=== PATIENT | male | born 1955 | race Caucasian/White ===

== ENCOUNTER 2022-07-21 10:23 | Emergency (ER) | payer MEDICARE, MEDICAID ==
[~2022-07-21] VITALS: Ht 193 cm; Wt 68.0 kg
[2022-07-21 11:06] LABS: BASO # 0.02 K/mm3 (0.02-0.10); EOS # 0.19 K/mm3 (0.04-0.40); EOS % 1.4 % (0.0-4.0); HEMATOCRIT 45.6 % (42.0-52.0); HEMOGLOBIN 14.4 g/dL (13.5-18.0); LYMPH# 1.68 K/mm3 (1.50-4.00); MEAN CELL VOLUME 83 fl (78-100); MEAN CORPUSCULAR HEMOGLOBIN 26 pg (27-31); MEAN CORPUSCULAR HGB CONC 32 g/dL (33-37); MEAN PLATELET VOLUME 10.5 fl (7.4-10.4); MONO # 1.08 K/mm3 (0.20-0.80); NEU # 11.04 K/mm3 (1.40-6.50); PLATELET COUNT 271 K/mm3 (130-400); RED BLOOD COUNT 5.49 M/mm3 (4.20-5.60); RED CELL DISTRIBUTION WIDTH 13.9 % (11.5-14.5); WHITE BLOOD COUNT 14.1 K/mm3 (4.8-10.8)
[2022-07-21 11:09] LABS: ALBUMIN 4.1 g/dL (3.4-4.8)
[2022-07-21 11:10] LABS: POTASSIUM 3.2 mmol/L (3.5-5.1)
[2022-07-21 11:11] LABS: CALCIUM 10.5 mg/dL (8.3-10.5)
[2022-07-21 11:12] LABS: TOTAL PROTEIN 8.1 g/dL (6.2-8.1)
[2022-07-21 11:14] LABS: TOTAL BILIRUBIN 0.8 mg/dL (0.2-1.2)
[2022-07-21] MEDS ORDERED: SYNTHROID0.075 MG PO (12:25)
[2022-07-21] MEDS ORDERED: CYMBALTA60 M1 PO (12:25)
[2022-07-21] MEDS ORDERED: VITAMIN D21250 MCG PO (12:26)
[2022-07-21] MEDS ORDERED: OXYCODONE HCL15 MG PO (12:27)
[2022-07-21] MEDS ORDERED: DURAGESIC75 MCG/PAT TD (12:27)
[2022-07-21] MEDS ORDERED: GOOD SENSE ASPI81 M1 PO (12:27)
[2022-07-21 13:09] LABS: URINE APPEARANCE CLEAR; URINE BILIRUBIN NEGATIVE (NEGATIVE); URINE BLOOD NEGATIVE (NEGATIVE); URINE COLOR YELLOW; URINE GLUCOSE NEGATIVE (NEGATIVE); URINE KETONE 2+ (NEGATIVE); URINE LEUKOCYTE ESTERASE NEGATIVE (NEGATIVE); URINE NITRATE NEGATIVE (NEGATIVE); URINE PROTEIN(semi-quant) TRACE (NEGATIVE); URINE UROBILINOGEN NORMAL (NORMAL)
[2022-07-21 15:37] VITALS: BP 146/96
== END 2022-07-21 15:40 | disposition home or self-care (01) ==
LOC: ED 10:23
PROVIDERS: Family Medicine
DX: K56.41 Fecal impaction (principal); D72.829 Elevated white blood cell count, unspecified; G89.29 Other chronic pain; Z79.1 Long term (current) use of non-steroidal anti-inflammatories (NSAID); Z98.890 Other specified postprocedural states
CPT/HCPCS: Q9967

== ENCOUNTER 2024-01-25 19:17 | Emergency (ER) | payer MEDICARE, MEDICAID ==
[~2024-01-25] VITALS: Wt 54.5 kg
[~2024-01-25 19:17] MED LIST: CYMBALTA60 M1 PO; DURAGESIC75 MCG/PAT TD; GOOD SENSE ASPI81 M1 PO; OXYCODONE HCL15 MG PO; SYNTHROID0.075 MG PO; VITAMIN D21250 MCG PO
[2024-01-25 20:13] LABS: HEMATOCRIT 46.8 % (42.0-52.0); HEMOGLOBIN 14.7 g/dL (13.5-18.0); MEAN CELL VOLUME 82 fl (78-100); MEAN CORPUSCULAR HEMOGLOBIN 26 pg (27-31); MEAN CORPUSCULAR HGB CONC 31 g/dL (33-37); MEAN PLATELET VOLUME 9.7 fl (7.4-10.4); PLATELET COUNT 323 K/mm3 (130-400); RED BLOOD COUNT 5.72 M/mm3 (4.20-5.60); RED CELL DISTRIBUTION WIDTH 13.8 % (11.5-14.5)
[2024-01-25 20:15] LABS: ALBUMIN 4.1 g/dL (3.4-4.8); SODIUM 140 mmol/L (136-145)
[2024-01-25 20:16] LABS: CALCIUM 10.9 mg/dL (8.3-10.5)
[2024-01-25 20:17] LABS: GLUCOSE 236 mg/dL (75-110); TOTAL PROTEIN 7.6 g/dL (6.2-8.1)
[2024-01-25 20:19] LABS: CARBON DIOXIDE 27 mmol/L (23-31); TOTAL BILIRUBIN 0.6 mg/dL (0.2-1.2)
[2024-01-25 20:23] LABS: AST-SGOT 13 U/L (5-34)
[2024-01-25 20:25] LABS: ALT/SGPT < 6 U/L (0-55)
[2024-01-25 20:26] LABS: BAND 4 % (0-10); LIPASE < 4 U/L (8-78); LYMPHOCYTE 9 % (20-51); MONOCYTE 7 % (3-10); NEUTROPHILS 79 % (42-75)
[2024-01-25] MEDS ORDERED: fentaNYL 100 MCG/2 ML VIAL IV ONE ×2 (20:30→21:15)
[2024-01-25] MEDS ORDERED: Ondansetron 4 MG/2 ML VIAL IV ONE (20:30)
[2024-01-25] MEDS ORDERED: Iohexol 300 - 100 ML VIAL IV ONE (21:57)
[2024-01-25 22:00] LABS: URINE APPEARANCE SLIGHTLY CLOUDY (CLEAR); URINE BILIRUBIN 1+ (NEGATIVE); URINE BLOOD NEGATIVE (NEGATIVE); URINE COLOR AMBER (YELLOW); URINE GLUCOSE NEGATIVE (NEGATIVE); URINE KETONE NEGATIVE (NEGATIVE); URINE LEUKOCYTE ESTERASE NEGATIVE (NEGATIVE); URINE NITRATE NEGATIVE (NEGATIVE); URINE PROTEIN(semi-quant) 1+ (NEGATIVE); URINE WBC 0-1 /hpf (0-3)
[2024-01-25] MEDS ORDERED: Piperacillin/Tazobactam Sodium 4.5 GM in NS 100 ML IV ONE (22:00)
[2024-01-25 23:45] VITALS: BP 132/71
== END 2024-01-25 23:45 | disposition other institution (70) ==
LOC: ED 19:17
PROVIDERS: Family Medicine
DX: A41.9 Sepsis, unspecified organism (principal); R19.7 Diarrhea, unspecified; E86.0 Dehydration; R11.0 Nausea; R10.9 Unspecified abdominal pain
CPT/HCPCS: J2405; J2543; J3010; J7120; Q9967

== ENCOUNTER 2024-01-25 22:41 | Inpatient (IN) | payer MEDICARE, MEDICAID ==
[~2024-01-25] VITALS: Ht 193 cm; Wt 52.7 kg
[2024-01-25] MEDS ORDERED: NS & 20mEq KCl 1,000 ML IV SCH (23:15)
[2024-01-25] MEDS ORDERED: fentaNYL 100 MCG/2 ML VIAL IV PRN (23:15)
[2024-01-25] MEDS ORDERED: Ondansetron 4 MG/2 ML VIAL IV PRN (23:15)
[2024-01-25 23:28] VITALS: BP 132/71
--- NOTE | 2024-01-25 23:45 | NUR ---
PT ARRIVED TO INPATIENT ROOM VIA WHEELCHAIR, PT AWAKE, A/OX4, IVSITE IN LFA 20G STARTED IN ER, PT STATED ABD PAIN /. WHEN THIS RN TRIED TO DO PT ADMISSION PROCESS, PT WAS UNABLE TO STAY AWAKE, VS WHERE ALL WITHIN NORMAL RANGE. TELEMETRY MONITORING WAS STARTED MED MD ORDERS. THIS RN WILL ATTEMPT TO COMPLETE THE ADMISSION QUESTIONARE AT A LATER TIME. PT SEEMED TO BE TIRED EVEN IN ER. PT LEFT IN BED AT LOWEST POSITION, ALARMED W CALL LIGHT IN REACH.
[2024-01-26 02:11] VITALS: BP 121/80
[2024-01-26] MEDS ORDERED: Piperacillin/Tazobactam Sodium 3.375 GM in NS 100 ML IV SCH (06:00)
[2024-01-26 06:14] LABS: HEMATOCRIT 42.6 % (42.0-52.0); HEMOGLOBIN 13.6 g/dL (13.5-18.0); MEAN CELL VOLUME 82 fl (78-100); MEAN CORPUSCULAR HEMOGLOBIN 26 pg (27-31); MEAN CORPUSCULAR HGB CONC 32 g/dL (33-37); MEAN PLATELET VOLUME 9.7 fl (7.4-10.4); PLATELET COUNT 250 K/mm3 (130-400); RED BLOOD COUNT 5.18 M/mm3 (4.20-5.60)
[2024-01-26 06:17] VITALS: BP 130/81
[2024-01-26 06:17] LABS: WHITE BLOOD COUNT 23.4 K/mm3 (4.8-10.8)
[2024-01-26 06:22] LABS: ALBUMIN 3.4 g/dL (3.4-4.8); SODIUM 139 mmol/L (136-145)
[2024-01-26 06:23] LABS: CALCIUM 9.7 mg/dL (8.3-10.5)
[2024-01-26 06:24] LABS: GLUCOSE 184 mg/dL (75-110)
[2024-01-26 06:25] LABS: TOTAL PROTEIN 6.2 g/dL (6.2-8.1)
[2024-01-26 06:26] LABS: CARBON DIOXIDE 24 mmol/L (23-31); TOTAL BILIRUBIN 0.7 mg/dL (0.2-1.2)
[2024-01-26 06:30] LABS: AST-SGOT 13 U/L (5-34)
[2024-01-26 06:32] LABS: ALT/SGPT < 6 U/L (0-55); LIPASE < 4 U/L (8-78)
[2024-01-26 06:53] LABS: LYMPHOCYTE 4 % (20-51); MONOCYTE 4 % (3-10); NEUTROPHILS 92 % (42-75)
[2024-01-26] MEDS ORDERED: Nicotine 21 MG DAILY PATCH TD SCH (09:00)
[2024-01-26] MEDS ORDERED: DULoxetine 30 MG CAP PO SCH (09:00)
--- NOTE | 2024-01-26 09:30 | NUR ---
Pt is arousable to voice with touch but otherwise very drowsy and falls back to sleep when conversation stops. Pt reports chronic pain to lower back. Reports pain 6/10 to back. Has 50mcg fentanyl patch to L upper abdomen. Reports that he takes oxycodone 20mg QID at home in addition to patch and is concerned that he has not gotten any here. States "I don't want to go through withdrawal." Assure pt that he had IV pain Rx. Also tell pt that this RN is not comfortable giving add'l pain Rx when pt is unable to remain awake. Pt reports that he stopped taking opioids x 10 days, says he started again because he could not tolerate the withdrawal symptoms. Pt everyday smoker, applied nicotine patch to L shoulder. Pt reports moving to this area 2 years ago weighing approx 165#. Says that he does not know why he has continued to lose weight. Reports that he has been told it is r/t oxycodone. IV to LFA with fluids infusing per order.
[2024-01-26 10:00] VITALS: BP 119/73
--- NOTE | 2024-01-26 12:00 | NUR ---
Pt SO, Rima, reports that pt has lost 50# steadily over the last 2 years. Has not had any preventative procedures done for >10 years. Is nauseated regularly and takes zofran. She thinks weight loss is r/t oxycodone. Says that pt started taking pain Rx approx 4 years ago after injury to leg and hip. Says that pt eats at home, but continues to lose weight. Is unable to go anywhere or get out in community r/t pain, nausea and weakness.
[2024-01-26 14:15] VITALS: BP 115/73
--- NOTE | 2024-01-26 16:47 | NUR ---
Pt awake and alert. Ambulates to BR, urinates large unmeasured amount. Requests to sit up in recliner. Request regular meal tray. Notify provider, diet order changed.
[2024-01-26] MEDS ORDERED: oxyCODONE 5 MG TAB PO PRN (18:00)
[2024-01-26 18:03] VITALS: BP 121/64
[2024-01-26 22:00] VITALS: BP 135/66
[2024-01-27] VITALS (7 sets, daily range): BP systolic 102–174; BP diastolic 67–86
[2024-01-27 08:18] LABS: CALCIUM 8.5 mg/dL (8.3-10.5)
[2024-01-27 08:37] LABS: BASO # 0.02 K/mm3 (0.02-0.10); EOS # 0.28 K/mm3 (0.04-0.40); EOS % 2.3 % (0.0-4.0); HEMATOCRIT 32.2 % (42.0-52.0); LYMPH# 2.12 K/mm3 (1.50-4.00); MEAN CELL VOLUME 85 fl (78-100); MEAN CORPUSCULAR HEMOGLOBIN 26 pg (27-31); MEAN CORPUSCULAR HGB CONC 31 g/dL (33-37); MEAN PLATELET VOLUME 10.5 fl (7.4-10.4); MONO # 1.05 K/mm3 (0.20-0.80); NEU # 8.81 K/mm3 (1.40-6.50); RED BLOOD COUNT 3.81 M/mm3 (4.20-5.60); RED CELL DISTRIBUTION WIDTH 14.3 % (11.5-14.5); WHITE BLOOD COUNT 12.3 K/mm3 (4.8-10.8)
[2024-01-27 08:43] LABS: PLATELET COUNT 176 K/mm3 (130-400)
--- NOTE | 2024-01-27 08:53 | NUR ---
REPORT RECEIVED FROM ILANA MONTES. PATIENT RESTING IN BED UPON ARRIVAL IN ROOM. PT COMPLAINING OF 7 OUT OF 10 PAIN "ALL OVER", BUT HE STATES HE KNOWS HE CANNOT HAVE MORE PAIN MEDICATION AT THIS TIME. REPORTING NAUSEA, ZOFRAN GIVEN WHICH PATIENT STATED GAVE HIM SOME RELIEF. PATIENT ALSO INSTRUCTED TO CONTACT TO BRING IN NEW FENTANYL PATCH HIS WILL TODAY. TELE DC'D AT [id number].
[2024-01-27] MEDS ORDERED: Amoxicillin/Clavulanate K+ 875/125 MG TAB PO SCH (09:00)
--- NOTE | 2024-01-27 11:25 | NUR ---
PT'S BROUGHT IN NEW FENTANYL PATCH. VERIFIED THAT IT WAS A 75 MCG FENTANYL PATCH. OLD PATCH REMOVED AND DISPOSED OF AND NEW PATCH PLACED IN RIGHT RIB AREA.
[2024-01-27] MEDS ORDERED: hydrALAZINE 10 MG TAB PO PRN (16:30)
--- NOTE | 2024-01-27 16:50 | NUR ---
AT 1410 PT BLOOD PRESSURE ELEVATED AT 170/80. PT WAS HAVING A LOT OF PAIN AND MEDICATION WAS GIVEN. RECHECK OF BLOOD PRESSURE AROUND 1630 SHOWED BP OF 174/86. DR VIERA NOTIFIED OF ELEVATED BLOOD PRESSURES.
[2024-01-27] MEDS ORDERED: QUEtiapine 25 MG TAB PO SCH (21:00)
--- NOTE | 2024-01-27 22:19 | NUR ---
THIS NURSEE ASSESED PT. PT REPORTED BEING IN PAIN, AND NOT SLEEPING WELL. HE HAS HAD 3 REGULAR BMS TODAY. PT HAD A MOMENT OF TEARFULNESS AFTER GETTING OFF OF THE PHONE WITH HIS THIS EVENING. RN REPORTED PTS LACK OF SLEEP TO DR. VIERA. AN EKG WAS ORDERED TO RULE OUT ELEVATED OR PROLONGED ST WAVES. SEROQUEL ORDERED. RN EDUCATED PT, IF PT IS STILL AWAKE IN ONE HOUR TO CALL FOR THE NURSE. PT IS RESTING QUIETLY IN BED.
[2024-01-28 02:18] VITALS: BP 146/83
[2024-01-28 06:05] VITALS: BP 132/75
[2024-01-28 06:36] LABS: BASO # 0.02 K/mm3 (0.02-0.10); EOS % 2.5 % (0.0-4.0); HEMATOCRIT 33.8 % (42.0-52.0); HEMOGLOBIN 10.4 g/dL (13.5-18.0); MEAN CELL VOLUME 84 fl (78-100); MEAN CORPUSCULAR HEMOGLOBIN 26 pg (27-31); MEAN CORPUSCULAR HGB CONC 31 g/dL (33-37); MEAN PLATELET VOLUME 9.5 fl (7.4-10.4); MONO # 0.68 K/mm3 (0.20-0.80); NEU # 4.85 K/mm3 (1.40-6.50); PLATELET COUNT 190 K/mm3 (130-400); RED BLOOD COUNT 4.01 M/mm3 (4.20-5.60)
[2024-01-28 06:45] LABS: CALCIUM 9.1 mg/dL (8.3-10.5)
[2024-01-28 10:09] VITALS: BP 161/82
[2024-01-28] MEDS ORDERED: AMOXICILLIN AND1 TA2 PO (10:55)
[2024-01-28] MEDS ORDERED: OXYCODONE HYDROC5 M1 PO (10:57)
--- NOTE | 2024-01-28 11:16 | NUR ---
REPORT RECEIVED THIS AM FROM ILANA BRIAN. PATIENT ALERT AND ORIENTED. STATED HE WAS ABLE TO SLEEP A LOT BETTER OVERNIGHT. PAIN STILL AT A CONSISTENT 7/10. PT REPORTS NAUSEA. STATES HE OVERALL FEELS BETTER THAN PREVIOUS, REQUESTING TO BE DISCHARGED TODAY.
--- NOTE | 2024-01-28 12:19 | NUR ---
DISCHARGE INSTRUCTIONS AND MEDICATIONS GIVEN TO PATIENT. PT AND VERBALIZE UNDERSTANDING OF INSTRUCTIONS. PT TO CALL PCP ON TUESDAY TO SET UP FOLLOW UP APPOINTMENT WITH FURTHER LABS AND TESTING. IV REMOVED, CATHETER INTACT. PATIENT AND HAD ALL QUESTIONS ANSWERED. PT TAKEN OUT TO PRIVATE VEHICLE VIA WHEELCHAIR.
== END 2024-01-28 12:20 | disposition home or self-care (01) | DRG 445 ==
LOC: MED/SURG 22:41
PROVIDERS: ADMIT Family Medicine
DX: K80.70 Calculus of gallbladder and bile duct without cholecystitis without obstruction (principal); M48.54XA Collapsed vertebra, not elsewhere classified, thoracic region, initial encounter for fracture; G89.4 Chronic pain syndrome; E86.0 Dehydration; E87.6 Hypokalemia; K64.9 Unspecified hemorrhoids; R63.4 Abnormal weight loss; Q55.22 Retractile testis; F17.210 Nicotine dependence, cigarettes, uncomplicated; Z79.891 Long term (current) use of opiate analgesic; Z79.82 Long term (current) use of aspirin
CPT/HCPCS: J1650; J2405; J2543; J3480

== ENCOUNTER 2024-02-07 19:57 | Emergency (ER) | payer MEDICARE, MEDICAID ==
[~2024-02-07] VITALS: Ht 193 cm; Wt 59.0 kg
[~2024-02-07 19:57] MED LIST changes: +AMOXICILLIN AND1 TA2 PO; +OXYCODONE HYDROC5 M1 PO
[2024-02-07] MEDS ORDERED: SENNA8.6 M1 PO (20:12)
[2024-02-07] MEDS ORDERED: LORazepam 0.5 MG TABLET PO ONE (20:30)
[2024-02-07 20:50] LABS: BASO # 0.01 K/mm3 (0.02-0.10); EOS # 0.23 K/mm3 (0.04-0.40); HEMATOCRIT 37.3 % (42.0-52.0); HEMOGLOBIN 11.5 g/dL (13.5-18.0); LYMPH# 1.41 K/mm3 (1.50-4.00); MEAN CELL VOLUME 85 fl (78-100); MEAN CORPUSCULAR HEMOGLOBIN 26 pg (27-31); MEAN CORPUSCULAR HGB CONC 31 g/dL (33-37); MEAN PLATELET VOLUME 9.1 fl (7.4-10.4); MONO # 0.67 K/mm3 (0.20-0.80); NEU # 9.01 K/mm3 (1.40-6.50); PLATELET COUNT 258 K/mm3 (130-400); RED BLOOD COUNT 4.41 M/mm3 (4.20-5.60); RED CELL DISTRIBUTION WIDTH 14.8 % (11.5-14.5); WHITE BLOOD COUNT 11.4 K/mm3 (4.8-10.8)
[2024-02-07 21:02] LABS: ALBUMIN 3.6 g/dL (3.4-4.8); SODIUM 141 mmol/L (136-145)
[2024-02-07 21:03] LABS: CALCIUM 9.3 mg/dL (8.3-10.5)
[2024-02-07 21:04] LABS: GLUCOSE 147 mg/dL (75-110)
[2024-02-07 21:05] LABS: TOTAL PROTEIN 6.3 g/dL (6.2-8.1)
[2024-02-07 21:06] LABS: CARBON DIOXIDE 25 mmol/L (23-31); TOTAL BILIRUBIN 0.3 mg/dL (0.2-1.2)
[2024-02-07 21:09] LABS: URINE APPEARANCE CLOUDY (CLEAR); URINE BILIRUBIN NEGATIVE (NEGATIVE); URINE BLOOD NEGATIVE (NEGATIVE); URINE COLOR YELLOW (YELLOW); URINE GLUCOSE NEGATIVE (NEGATIVE); URINE KETONE NEGATIVE (NEGATIVE); URINE NITRATE NEGATIVE (NEGATIVE); URINE PROTEIN(semi-quant) NEGATIVE (NEGATIVE)
[2024-02-07 21:10] LABS: URINE LEUKOCYTE ESTERASE NEGATIVE (NEGATIVE); URINE WBC 0-1 /hpf (0-3)
[2024-02-07 21:10] LABS: AST-SGOT 7 U/L (5-34)
[2024-02-07 21:16] LABS: ALT/SGPT < 6 U/L (0-55)
[2024-02-07 21:28] VITALS: BP 180/88
== END 2024-02-07 21:31 | disposition home or self-care (01) ==
LOC: ED 19:57
PROVIDERS: Physician Assistant; Registered Nurse
DX: F41.9 Anxiety disorder, unspecified (principal); F17.210 Nicotine dependence, cigarettes, uncomplicated

== ENCOUNTER 2024-03-24 15:53 | Emergency (ER) | payer MEDICARE, MEDICAID ==
[~2024-03-24] VITALS: Ht 193 cm; Wt 53.2 kg
[~2024-03-24 15:53] MED LIST changes: +SENNA8.6 M1 PO
[2024-03-24 16:23] LABS: BASO # 0.01 K/mm3 (0.02-0.10); EOS # 0.26 K/mm3 (0.04-0.40); EOS % 3.1 % (0.0-4.0); HEMATOCRIT 38.2 % (42.0-52.0); HEMOGLOBIN 12.3 g/dL (13.5-18.0); LYMPH# 1.14 K/mm3 (1.50-4.00); MEAN CELL VOLUME 80 fl (78-100); MEAN CORPUSCULAR HEMOGLOBIN 26 pg (27-31); MEAN CORPUSCULAR HGB CONC 32 g/dL (33-37); MEAN PLATELET VOLUME 8.7 fl (7.4-10.4); MONO # 0.63 K/mm3 (0.20-0.80); NEU # 6.33 K/mm3 (1.40-6.50); PLATELET COUNT 259 K/mm3 (130-400); RED BLOOD COUNT 4.77 M/mm3 (4.20-5.60); RED CELL DISTRIBUTION WIDTH 14.1 % (11.5-14.5); WHITE BLOOD COUNT 8.4 K/mm3 (4.8-10.8)
[2024-03-24] MEDS ORDERED: NS 1,000 ML IV SCH (16:30)
[2024-03-24 16:32] LABS: CALCIUM 9.6 mg/dL (8.3-10.5)
[2024-03-24 17:28] VITALS: BP 148/68
== END 2024-03-24 17:45 | disposition home or self-care (01) ==
LOC: ED 15:53
PROVIDERS: Family Medicine
DX: K59.03 Drug induced constipation (principal); T40.2X5A Adverse effect of other opioids, initial encounter; F17.200 Nicotine dependence, unspecified, uncomplicated
CPT/HCPCS: J7030

== ENCOUNTER 2024-03-29 18:35 | Emergency (ER) | payer MEDICARE, MEDICAID ==
[~2024-03-29] VITALS: Ht 193 cm; Wt 53.1 kg
[2024-03-29] MEDS ORDERED: OXYCODONE HCL10 M1 PO (19:01)
[2024-03-29] MEDS ORDERED: NEURONTIN300 MG/CAP PO (19:03)
[2024-03-29] MEDS ORDERED: VITAMIN D21250 MCG PO (19:04)
[2024-03-29 19:27] LABS: BASO # 0.02 K/mm3 (0.02-0.10); EOS # 0.09 K/mm3 (0.04-0.40); HEMATOCRIT 34.9 % (42.0-52.0); LYMPH# 1.28 K/mm3 (1.50-4.00); MEAN CELL VOLUME 82 fl (78-100); MEAN CORPUSCULAR HEMOGLOBIN 26 pg (27-31); MEAN CORPUSCULAR HGB CONC 32 g/dL (33-37); MEAN PLATELET VOLUME 9.1 fl (7.4-10.4); MONO # 0.78 K/mm3 (0.20-0.80); NEU # 6.51 K/mm3 (1.40-6.50); PLATELET COUNT 234 K/mm3 (130-400); RED BLOOD COUNT 4.28 M/mm3 (4.20-5.60); RED CELL DISTRIBUTION WIDTH 14.7 % (11.5-14.5); WHITE BLOOD COUNT 8.7 K/mm3 (4.8-10.8)
[2024-03-29 19:33] LABS: ALBUMIN 3.6 g/dL (3.4-4.8); SODIUM 139 mmol/L (136-145)
[2024-03-29 19:35] LABS: CALCIUM 9.2 mg/dL (8.3-10.5)
[2024-03-29 19:36] LABS: GLUCOSE 153 mg/dL (75-110)
[2024-03-29 19:37] LABS: CARBON DIOXIDE 25 mmol/L (23-31)
[2024-03-29 19:38] LABS: TOTAL BILIRUBIN 0.4 mg/dL (0.2-1.2)
[2024-03-29 19:41] LABS: AST-SGOT 9 U/L (5-34)
[2024-03-29 19:42] LABS: ALT/SGPT 6 U/L (0-55)
[2024-03-29 19:49] LABS: TROPONIN-I < 0.030 ng/mL (0.00-0.033)
[2024-03-29 20:21] VITALS: BP 146/82
== END 2024-03-29 20:21 | disposition home or self-care (01) ==
LOC: ED 18:35
PROVIDERS: Family Medicine
DX: F41.0 Panic disorder [episodic paroxysmal anxiety] (principal); R00.0 Tachycardia, unspecified; F17.200 Nicotine dependence, unspecified, uncomplicated

== ENCOUNTER 2024-05-31 08:49 | Emergency (ER) | payer MEDICARE, MEDICAID ==
[~2024-05-31] VITALS: Ht 193 cm; Wt 56.5 kg
[~2024-05-31 08:49] MED LIST changes: +BUSPIRONE5 MG PO; +HYDROXYZINE HCL25 M1 PO; +NEURONTIN300 MG/CAP PO; +OXYCODONE HCL10 M1 PO; +PHENERGAN 25 TA25 MG
[2024-05-31] MEDS ORDERED: NS 1,000 ML IV ONE (09:00)
[2024-05-31 09:10] LABS: HEMOGLOBIN 13.9 g/dL (13.5-18.0); MEAN CELL VOLUME 80 fl (78-100); MEAN CORPUSCULAR HEMOGLOBIN 25 pg (27-31); MEAN CORPUSCULAR HGB CONC 32 g/dL (33-37); MEAN PLATELET VOLUME 9.2 fl (7.4-10.4); PLATELET COUNT 263 K/mm3 (130-400); RED BLOOD COUNT 5.53 M/mm3 (4.20-5.60); RED CELL DISTRIBUTION WIDTH 14.9 % (11.5-14.5); WHITE BLOOD COUNT 13.5 K/mm3 (4.8-10.8)
[2024-05-31 09:15] LABS: ALBUMIN 4.1 g/dL (3.4-4.8); SODIUM 141 mmol/L (136-145)
[2024-05-31 09:17] LABS: CALCIUM 10.1 mg/dL (8.3-10.5)
[2024-05-31 09:18] LABS: GLUCOSE 172 mg/dL (75-110); TOTAL PROTEIN 8.1 g/dL (6.2-8.1)
[2024-05-31 09:19] LABS: CARBON DIOXIDE 24 mmol/L (23-31)
[2024-05-31 09:20] LABS: TOTAL BILIRUBIN 0.6 mg/dL (0.2-1.2)
[2024-05-31 09:23] LABS: AST-SGOT 12 U/L (5-34)
[2024-05-31 09:24] LABS: ALT/SGPT 8 U/L (0-55)
[2024-05-31 09:25] LABS: LIPASE 108 U/L (8-78)
[2024-05-31] MEDS ORDERED: oxyCODONE 5 MG TAB PO ONE (09:30)
[2024-05-31] MEDS ORDERED: Ondansetron 4 MG/2 ML VIAL IV ONE (09:30)
[2024-05-31] MEDS ORDERED: Iohexol 300 - 100 ML VIAL IV ONE (09:34)
[2024-05-31 09:49] LABS: TROPONIN-I < 0.030 ng/mL (0.00-0.033)
[2024-05-31 09:54] LABS: LYMPHOCYTE 2 % (20-51); MONOCYTE 3 % (3-10); NEUTROPHILS 95 % (42-75)
[2024-05-31 09:58] LABS: PH-URINE 7.5 (5.0 - 8.0); URINE APPEARANCE CLEAR (CLEAR); URINE BILIRUBIN NEGATIVE (NEGATIVE); URINE BLOOD NEGATIVE (NEGATIVE); URINE COLOR YELLOW (YELLOW); URINE GLUCOSE NEGATIVE (NEGATIVE); URINE KETONE NEGATIVE (NEGATIVE); URINE LEUKOCYTE ESTERASE NEGATIVE (NEGATIVE); URINE MUCUS PRESENT (NOT PRESENT); URINE NITRATE NEGATIVE (NEGATIVE); URINE PROTEIN(semi-quant) 2+ (NEGATIVE); URINE WBC 0-1 /hpf (0-3)
[2024-05-31] MEDS ORDERED: AMOXICILLIN AND1 TA2 PO (10:39)
[2024-05-31] MEDS ORDERED: FLEET ENEMA 13133 ML RC (10:39)
[2024-05-31] MEDS ORDERED: ZOFRAN ODT4 MG PO (10:43)
[2024-05-31] MEDS ORDERED: Piperacillin/Tazobactam Sodium 3.375 GM in NS 100 ML IV ONE (10:45)
[2024-05-31 11:36] VITALS: BP 215/114
== END 2024-05-31 11:32 | disposition home or self-care (01) ==
LOC: ED 08:49
PROVIDERS: Family Medicine
DX: R11.2 Nausea with vomiting, unspecified (principal); R00.0 Tachycardia, unspecified; F17.210 Nicotine dependence, cigarettes, uncomplicated
CPT/HCPCS: J2405; J2543; J7030; Q9967

== ENCOUNTER 2024-07-27 13:27 | Inpatient (IN) | payer MEDICARE, MEDICAID ==
[~2024-07-27] VITALS: Ht 193 cm; Wt 57.4 kg
[~2024-07-27 13:27] MED LIST changes: +FLEET ENEMA 13133 ML RC; +ZOFRAN ODT4 MG PO
--- NOTE | 2024-07-27 13:30 | NUR ---
PATIENT TO ROOM 308 FOR ADMISSION TO [facility] ACCOMPAINED BY GIRLFRIEND, TRINH. PATIENT HAS RECENT FALL RESULTING IN L HUMEROUS FRACTURE AND L FEMUR FRACTURE, PATIENT IS WBAT ON LLE AND NON WEIGHT BEARING FOR LUE. PATIENT STATES HE OCCASIONALLY USES A CANE AT HOME. PATIENT IS CURRENTLY 1:1 WITH HEMIWALKER AND GAIT BELT. PATIENT IS A&Ox4, STATES PAIN TO LLE, LUE, AND BACK. PATIENT IS AN EVERYDAY SMOKER, ASKS FOR NICTOINE PATCH. PATIENT WEARS READING GLASSES, GIRLFRIEND TO BRING AT A LATER TIME. PATIENT HAS METAL JEANMARIE IN R UPPER LEG. 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 PATIENT REQUESTS TO REST IN BED AT THIS TIME, BED LOCKED IN LOWEST POSTION, ALARM ON, CALL LIGHT WITHIN REACH. SIDE RAILS UP x3 PER PATIENTS REQUEST.
[2024-07-27] MEDS ORDERED: Acetaminophen 325 MG TAB PO PRN (14:15)
[2024-07-27] MEDS ORDERED: Polyethylene Glycol 3350 Powder 17 GM PACKET PO PRN (14:15)
[2024-07-27] MEDS ORDERED: Nicotine 14 MG DAILY PATCH TD SCH (14:18)
[2024-07-27 14:22] VITALS: BP 151/84
[2024-07-27] MEDS ORDERED: ELIQUIS2.5 MG PO (14:28)
[2024-07-27] MEDS ORDERED: DURAGESIC50 MCG/PAT TD (14:29)
[2024-07-27] MEDS ORDERED: DULOXETINE60 MG PO (14:29)
[2024-07-27] MEDS ORDERED: ONDANSETRON ODT8 MG PO (14:30)
[2024-07-27] MEDS ORDERED: LEVOTHYROXINE50 MCG PO (14:30)
[2024-07-27] MEDS ORDERED: LINZESS145 MCG PO (14:31)
[2024-07-27] MEDS ORDERED: OXYCODONE HCL15 MG PO (14:31)
[2024-07-27] MEDS ORDERED: hydrOXYzine HCl 25 MG TAB PO PRN (14:45)
[2024-07-27] MEDS ORDERED: oxyCODONE 5 MG TAB PO PRN (14:45)
--- NOTE | 2024-07-27 15:02 | NUR ---
PATIENT REQUEST PAIN MEDS AT THIS TIME. PER REPORT FROM NURSE AT [facility] LAST DOES GIVEN AT 1140. THIS NURSE EXPLAINED TO PATIENT IT IS TO EARLY FOR NEXT DOSE. PATIENT VERBALIZED UNDERSTANDING.
--- NOTE | 2024-07-27 15:45 | NUR ---
PT/OT REQUEST AIR MATTERES FOR PATIENT.
--- NOTE | 2024-07-27 17:45 | NUR ---
PATIENT REMAINS RESTING IN BED. THIS NURSE EXPRESSED THE IMPORTANCE OF CHANGING POSTIONS TO PREVENT PRESSURE ULCERS. PATIENT VERBALIZES UNDERSTANDING.
--- NOTE | 2024-07-27 19:09 | NUR ---
REPORT GIVEN TO ILANA SAVAGE
[2024-07-27 19:20] VITALS: BP 115/71
--- NOTE | 2024-07-27 20:21 | NUR ---
PT RESTING IN BED WATCHING TV. REPORTING PAIN TO L LEG AND ARM. OXYCODONE GIVEN. DENIES NUMBNESS OR TINGLING. REPORTS INTERMITTENT SOB AND NAUSEA, BUT NONE AT THIS TIME. READY TO GO TO BED. ALERT AND ORIENTED.
[2024-07-27] MEDS ORDERED: DULoxetine 30 MG CAP PO SCH (21:00)
[2024-07-27] MEDS ORDERED: Apixaban 2.5 MG TABLET PO SCH (21:00)
[2024-07-27] MEDS ORDERED: Gabapentin 300 MG CAP PO SCH (21:00)
[2024-07-27] MEDS ORDERED: Docusate Sodium 100 MG CAP PO SCH (21:00)
[2024-07-27] MEDS ORDERED: busPIRone 5 MG TAB PO SCH (21:00)
[2024-07-28 07:12] LABS: BASO # 0.02 K/mm3 (0.02-0.10); EOS # 0.26 K/mm3 (0.04-0.40); EOS % 3.3 % (0.0-4.0); HEMOGLOBIN 8.3 g/dL (13.5-18.0); LYMPH# 1.29 K/mm3 (1.50-4.00); MEAN CELL VOLUME 82 fl (78-100); MEAN CORPUSCULAR HEMOGLOBIN 26 pg (27-31); MEAN CORPUSCULAR HGB CONC 32 g/dL (33-37); MEAN PLATELET VOLUME 9.7 fl (7.4-10.4); MONO # 0.84 K/mm3 (0.20-0.80); NEU # 5.43 K/mm3 (1.40-6.50); PLATELET COUNT 167 K/mm3 (130-400); RED BLOOD COUNT 3.19 M/mm3 (4.20-5.60); RED CELL DISTRIBUTION WIDTH 15.3 % (11.5-14.5); WHITE BLOOD COUNT 7.9 K/mm3 (4.8-10.8)
[2024-07-28 07:23] LABS: ALBUMIN 3.1 g/dL (3.4-4.8); SODIUM 138 mmol/L (136-145)
[2024-07-28 07:25] VITALS: BP 133/76
[2024-07-28 07:26] LABS: GLUCOSE 89 mg/dL (75-110); TOTAL PROTEIN 6.3 g/dL (6.2-8.1)
[2024-07-28 07:27] LABS: CARBON DIOXIDE 27 mmol/L (23-31)
[2024-07-28 07:28] LABS: TOTAL BILIRUBIN 0.5 mg/dL (0.2-1.2)
[2024-07-28 07:31] LABS: AST-SGOT 11 U/L (5-34)
[2024-07-28 07:39] LABS: ALT/SGPT < 6 U/L (0-55)
--- NOTE | 2024-07-28 08:45 | NUR ---
A&Ox4, RA, c/o pain 10/10 on a numeric pain scale. PRN medication given, as ordered. Reposistioned in bed. Reports he did not sleep well last night d/t pain. Swallowed pills whole with water. Resting quietly in bed. Bed in lowest and locked position. Call light within reach.
--- NOTE | 2024-07-28 12:31 | NUR ---
pt requesting something for nausea. zofran ODT given
[2024-07-28] MEDS ORDERED: [UNRECOGNIZED DRUG - REMARK] TD SCH (13:00)
[2024-07-28] MEDS ORDERED: fentaNYL 50 MCG 72 HR PATCH TD SCH (13:00)
--- NOTE | 2024-07-28 13:02 | NUR ---
Nicotine patch removal time 0900. With gloves removed fentanyl patch, folded over and discarded in sharps container. Upon reviewing orders, nicotine patch was to be applied daily. Fentanyl patch to remain for 3 days. Pharmacy contacted to report findings and clarify orders. Orders changed. New fentanyl patch applied.
[2024-07-28 19:20] VITALS: BP 145/78
--- NOTE | 2024-07-28 20:48 | NUR ---
PT A&OX4. AMBULATES WITH HEMIWALKER WITH STEADY GAIT. LUNGS CLEAR. ABD SOFT AND NON TENDER. COMPLAINS OF 6/10 PAIN TO LEFT ARM. REQUESTS PRN PAIN MEDICATION WHEN AVAILABLE.
--- NOTE | 2024-07-29 07:00 | NUR ---
RESUMED CARE FROM ILANA STOUT.
[2024-07-29 07:42] VITALS: BP 151/86
--- NOTE | 2024-07-29 08:05 | NUR ---
PATIENT SUPINE IN BED UPON ARRIVAL TO ROOM. REPORTS 8/10 PAIN REQUESTING PAIN MEDICATION. FENTANYL PATCH TO LEFT CHEST. AM MEDICATIONS PROVIDED WITH PRN PAIN MEDICATION. NICOTINE PATCH REMOVED TO RIGHT CHEST AND REPLACED TO RIGHT SHOULDER. ASSESSMENT COMPLETED. PATIENT FOUND WITH SLING TO LUE OUT OF PLACE, READJUSTED AT THIS TIME AND EDUCATION PROVIDED ON PROPER PLACEMENT. 150ML OF THELMA CLEAR URINE NOTED TO URINAL AT BEDSIDE. BRYAN HOSE IN PLACE TO RLE ONLY, BRYAN HOSE APPLIED TO LLE. PATIENT REPORTS DISCOMFORT TO LOWER SPINE, MEPILEX NOTED. PATIENT REPORTS ABRASION PRIOR TO ADMISSION, OFFLOADED PRESSURE WITH PILLOW. PATIENT REPORTS NOT HAVING A BOWEL MOVEMENT SINCE ADMISSION, COLACE PROVIDED WITH AM MEDICATIONS. THIS RN DISCUSSED OTHER OPTIONS AND PATIENT REFUSED OTHER MEDICATIONS, REPORTS TAKING LINZESS DAILY AT HOME. PATIENT REMAINS IN BED, ALARMED, CALL LIGHT WITHIN REACH UPON DEPARTURE FROM ROOM.
[2024-07-29] MEDS ORDERED: Nicotine 14 MG DAILY PATCH TD SCH (09:00)
--- NOTE | 2024-07-29 11:00 | NUR ---
PATIENT AT BEDSIDE AT THIS TIME.
--- NOTE | 2024-07-29 14:05 | NUR ---
ON PATIENT ROUNDING, PATIENT NOTED TO BE DIFFICULT TO AROUSE. SLEEPING MOST OF THE AFTERNOON. HAS NOT REQUESTED PAIN MEDICATION OFTEN, LAST PRN PROVIDED AT 0730. PATIENT REPORTS BEING "EXTRA TIRED" FROM NOT SLEEPING WELL OVERNIGHT DUE TO PAIN.
--- NOTE | 2024-07-29 14:30 | NUR ---
PCT CRYSTAL REPORTS PATIENT WAS INCONTINENT OF URINE.
--- NOTE | 2024-07-29 16:05 | NUR ---
PATIENT TEARFUL IN RECLINER, REQUESTING PAIN MEDICATION. PRN MEDICATION PROVIDED TO PATIENT. PILLOWS PROVIDED FOR OFFLOADING OF PRESSURE. PATIENT REFUSES HEAT OR ICE.
--- NOTE | 2024-07-29 16:25 | NUR ---
PATIENT REFUSING TO STAY IN RECLINER AND REPORTS HE WILL NOT EATING MEALS IN CHAIR ANY LONGER IT IS TOO UNCOMFORTABLE. MANY ATTEMPTS OF ENCOURAGEMENT AND INTERVENTIONS TO PROVIDE HIM WITH MORE COMFORT. PATIENT TEARFUL AND AGGITATED. PATIENT ASSISTED BY PCT BACK TO BED AT THIS TIME.
--- NOTE | 2024-07-29 18:44 | NUR ---
REPORT TO KALPESH LEGER.
[2024-07-29 19:00] VITALS: BP 133/78
--- NOTE | 2024-07-29 19:47 | NUR ---
Report received from Lizbeth Tijerina RN. Patient calls and requests pain medication for pain reported to RACHEL and NICOLE 02/03. Oxycodone 15 MG taken at this time, along with HS medications. Patient laying supine in bed with Sling in place to LUE. A/O x4. Assessment completed. CMS intact to LUE. Cuffing Machine Operator equal. States has not had a BM since admission. BS active x4. Refuses offer of prn laxative. Offered and refused ice/heat for pain. Bed alarm on. Call light in reach.
--- NOTE | 2024-07-29 23:50 | NUR ---
Calls for pain medications, Rates 02/03. States "I hope I can get some sleep". Sling in place to AYAH with pillow underneath for support. Denies further wants or needs. Continues to refuse ice/heat.
--- NOTE | 2024-07-30 03:39 | NUR ---
Requests pain medication. Pain level 8-9. States has not slept all night. "I just can't get comfortable". Again refuses ice/heat. Oxycodone 15 MG taken at this time. Discussed availability of Tylenol for in between oxycodone doses. Denies further wants or needs.
--- NOTE | 2024-07-30 06:05 | NUR ---
Awakened for AM Synthroid. States "I wasn't sleeping, can I have my pain pills?" States "it can't be more then a few minutes". Advised patient it is only 6 am and they are not due to 735. Patient moans and states ok. Refuses offer of ice, heat or other measures.
--- NOTE | 2024-07-30 07:05 | NUR ---
Report to Niyah PRECIADO.
[2024-07-30 07:28] VITALS: BP 140/75
[2024-07-30] MEDS ORDERED: oxyCODONE 5 MG TAB PO PRN (08:00)
[2024-07-30] MEDS ORDERED: fentaNYL 50 MCG 72 HR PATCH TD SCH (09:00)
[2024-07-30] MEDS ORDERED: [UNRECOGNIZED DRUG - REMARK] TD SCH (09:00)
--- NOTE | 2024-07-30 11:40 | NUR ---
Social history complete. Rima at bedside. Pt reports she is his designated healthcare agent. States he does have 3 children but none are local. They report they live in an apartment here in [place] and main concerns to go home are getting down three steps into apartment. Rima also reports she thinks a bedside commode would be beneficial so he doesnt have to walk as far to the bathroom. They voice concerns regarding pain regimen here in hospital. Stating "hes not getting as much as he was taking before the fall" Reports taking 20mg oxycodone every 4 hours at home. Ghazala pt nurse notified
[2024-07-30 19:40] VITALS: BP 129/75
--- NOTE | 2024-07-30 19:45 | NUR ---
Report received from Niyah PRECIADO. Patient rests in bed. Requests and given oxycodone for reported pain to NICOLE and RACHEL 03/06. Scheduled HS medications taken at this time as well. Reports no BM but refuses laxatives. Continue to refuse heat or ice for pain control Sling in place to MACIE RAMOS WNL. Assessment completed. Denies wants or needs.
--- NOTE | 2024-07-31 01:38 | NUR ---
Calls for analgesic. Reports pain 02/03. 300 ML of urine in urinal. Also states "I'm sorry, I soaked the bed". Patient was incontinent of large amount of urine and large amount of liquid BM. Total bed change and gown change. Ambulated to toilet as he felt he had to do more. Able to get self in and out of bed with gentle encouragement. No further BM. Assisted back to bed and positioned for comfort. Bed alarm on. Call light in reach.
--- NOTE | 2024-07-31 04:23 | NUR ---
Calls and asked if time for his pain pills. Advised he has another hour, states "ok, thank you.". Awake, watching TV.
--- NOTE | 2024-07-31 06:56 | NUR ---
Report to Niyah PRECIADO.
[2024-07-31 07:36] VITALS: BP 146/81
--- NOTE | 2024-07-31 15:56 | NUR ---
PATIENT SPENDS MOST OF HIS TIME IN BED AND OFTEN REFUSES TO GET IN CHAIR FOR MEALS. IF HE DOES MOVE INTO THE CHAIR, ONCE FINISHED, HE GETS WANTS TO GET BACK INTO BED. HE WAS INCONTINENT OF BOTH BOWEL AND BLADDER WHILE AWAKE THIS SHIFT.
--- NOTE | 2024-07-31 19:42 | NUR ---
PT A7OX4. AMBULATES WITH GAITBELT AND HEMIWALKER X1 ASSIST, LUNGS CLEAR. ABD SOFT AND NON TENDER. SKIN WARM AND DRY. MEPILEX REMAINS IN PLACE AND INTACT TO MIDBACK SPINE FOR BONY PROMINENCE PROTECTION. PAIN RATED AT 7/10 TO LEFT ARM. WILL GIVE PAIN PAIN WHEN DUE. DENIES ICE OR HEAT OR READJUSTMENT IN BED.
[2024-07-31 20:01] VITALS: BP 134/79
[2024-08-01 07:12] LABS: BASO # 0.02 K/mm3 (0.02-0.10); EOS # 0.21 K/mm3 (0.04-0.40); EOS % 2.7 % (0.0-4.0); HEMATOCRIT 27.9 % (42.0-52.0); HEMOGLOBIN 8.8 g/dL (13.5-18.0); LYMPH# 1.23 K/mm3 (1.50-4.00); MEAN CELL VOLUME 82 fl (78-100); MEAN CORPUSCULAR HEMOGLOBIN 26 pg (27-31); MEAN CORPUSCULAR HGB CONC 32 g/dL (33-37); MEAN PLATELET VOLUME 9.3 fl (7.4-10.4); MONO # 1.14 K/mm3 (0.20-0.80); NEU # 5.08 K/mm3 (1.40-6.50); PLATELET COUNT 232 K/mm3 (130-400); RED BLOOD COUNT 3.42 M/mm3 (4.20-5.60); RED CELL DISTRIBUTION WIDTH 15.3 % (11.5-14.5); WHITE BLOOD COUNT 7.7 K/mm3 (4.8-10.8)
[2024-08-01 07:22] LABS: TOTAL PROTEIN 6.3 g/dL (6.2-8.1)
[2024-08-01 07:24] LABS: TOTAL BILIRUBIN 0.6 mg/dL (0.2-1.2)
[2024-08-01 07:32] VITALS: BP 127/84
[2024-08-01] MEDS ORDERED: Multivitamin TAB PO SCH (09:00)
[2024-08-01] MEDS ORDERED: Thiamine 100 MG TAB PO SCH (09:00)
--- NOTE | 2024-08-01 18:46 | NUR ---
7989 This nurse coached pt out of bed. Pt refused WELT MAKER Kayla to get up. This nurse educated pt about getting stronger vs. muscle wasting. Pt reluctantly got up from bed with assitance. Pt using abel-walker. Pt used the restoom before sitting in recliner. Pt attended swing bed meeting today. Goals today are assess nutrition, a speech therapy consult, schedule pain meds before therapy. Pt became tearful and upset when this nurse couldn't bring pt pain meds at scheduled time. He also stated "Now I have to wait another four hours for anything else." Tracey Miller Visited with pt.
[2024-08-01 19:20] VITALS: BP 164/88
[2024-08-02 07:19] VITALS: BP 145/77
[2024-08-02 19:59] VITALS: BP 177/94
--- NOTE | 2024-08-03 07:00 | NUR ---
REPORT RECEIVED FROM ILANA MONTES.
[2024-08-03 07:37] VITALS: BP 171/88
--- NOTE | 2024-08-03 08:00 | NUR ---
PATIENT SITTING UP IN THE BED AT THIS TIME; A&Ox4. STATES PAIN TO LEFT ARM 8/10 AT THIS TIME. PATIENT IS PLEASENT AND COOPERATIVE WITH CARES. PATIENT STATES "DID NOT SLEEP VERY WELL AT ALL". PATIENT ASKS FOR PAIN MEDICATIONS AT THIS TIME. THIS NURSE EDUCATED PATIENT TIME PREVIOUS DOSE WAS GIVEN, PATIENT VERBALIZED UNDERSTANDING. PATIENT L ARM REPOSTIONED IN SLING. PATIENT ASSISTED FROM BED TO CHIAR AT THIS TIME WITH STANDBY ASSIST AND CANE. PATIENT DENIES OTHER NEEDS OR COMPLAINTS AT THIS TIME. CHAIR ALARMED. CALL LIGHT WITHIN REACH
--- NOTE | 2024-08-03 09:55 | NUR ---
NURSE INTO SEE PATIENT AT THIS TIME. PATIENT RESTING IN BED AFTER WALKING IN DUNN WITH RAJAN. PATIENT REQUESTS PAIN MEDICATION AT THIS TIME. PATIENT DENIES OTHER NEEDS OR COMPLAINTS AT THIS TIME. BED ALARM ON, CALL LIGHT WITHIN REACH
--- NOTE | 2024-08-03 13:15 | NUR ---
PATIENT SITTING IN CHAIR AT THIS TIME. PATIENT ASKS FOR PAIN MEDICATIONS. FENTANYL PATCH CHANGED AT THIS TIME. PATIENT OFFERS NO OTHER NEEDS OR COMPLAINTS AT THIS TIME. CHAIR ALARM ON, CALL LIGHT WITHIN REACH
[2024-08-03 19:00] VITALS: BP 144/76
--- NOTE | 2024-08-03 19:00 | NUR ---
REPORT GIVEN TO KALPESH LEGER BY ILANA CASTILLO
--- NOTE | 2024-08-03 20:30 | NUR ---
Report received from Olive PRECIADO. Patient rests supine in bed watching TV. A/O x4. Sling in place to AYAH, MACIE WNL. Remains NWB to LUE. WBAT To LLE. Rates pain to both arm and leg 02/03. Roxicodone 15 MG taken with HS medications. Taken whole without difficulty. Assessment completed. Mepilex CDI to back. Denies wants or needs at this time.
--- NOTE | 2024-08-04 01:50 | NUR ---
Calls and requests analgesic for reported pain 8-03/06. Roxicodone 15 Mg taken at this time. States he has gotten some sleep. Denies further wants or needs at this time. Bed alarm on. Call light in reach.
--- NOTE | 2024-08-04 06:48 | NUR ---
Report to Olive PRECIADO
[2024-08-04 07:00] VITALS: BP 149/81
--- NOTE | 2024-08-04 07:00 | NUR ---
REPORT RECEIVED FROM KALPESH LEGER
--- NOTE | 2024-08-04 07:18 | NUR ---
PATIENT AWAKE AND A&Ox4 SITTING UP IN BED. PATIENT C/O NOT RESTING WELL THROUGH THE NIGHT. PATIENT ASSISTED TO ADJUST IN THE BED. PATIENT ASKED TO REST UNTIL BREAKFAST. PATIENT STATES PAIN TO LEFT ARM AND LEG AT THIS TIME. DENIES OTHER NEEDS OR COMPLAINTS. BED ALARMED, CALL LIGHT WITHIN REACH.
[2024-08-04 19:00] VITALS: BP 142/71
--- NOTE | 2024-08-04 19:17 | NUR ---
REPORT GIVEN TO ILANA MONTES
--- NOTE | 2024-08-05 07:53 | NUR ---
THIS NURSE ASSISTED PT TO RESTROOM, GATE BELT ON AND CANE UTILIZED. WHILE WALKING BACK PT BEGAN TO STUMBLE. THIS NURSE WAS HOLDING ON TO PT GATE BELT AND WAS ABLE TO STABILIZE PT BEFORE A FALL COULD OCCUR. PT ASSISTED INTO BED AND BED ALARM TURNED ON
[2024-08-05 08:22] VITALS: BP 142/78
--- NOTE | 2024-08-05 08:30 | NUR ---
ILANA TURCIOS REPORTED PATIENT WAS UNSTEADY ON FEET WALKING BACK FROM BATHROOM. THIS NURSE ASSESSED PATIENT AT THIS TIME. PATIENT STATES PAIN TO LEFT ARM AND LEFT LEG. PATIENT IS TAKING PRN ANALGESICS REGULARLY. PATIENT STATES HE HAS TAKEN THIS MEDICATION ON A REGULAR BASIS FOR SEVERAL YEARS, DENIES FEELING SIDE EFFECTS FROM MEDICATION. PATIENT DENIES OTHER NEEDS OR COMPLAINTS AT THIS TIME. BED ALARM ON, CALL LIGHT WITHIN REACH.
--- NOTE | 2024-08-05 13:12 | NUR ---
PATIENT WALKS IN HALLWAY WITH PCT AT THIS TIME
--- NOTE | 2024-08-05 19:30 | NUR ---
REPORT GIVEN TO ILANA RANGEL
[2024-08-05 19:34] VITALS: BP 131/68
--- NOTE | 2024-08-05 21:00 | NUR ---
Patient ambulated back from the bathroom with 4 point cane and 1 assist. PCT reports he was steady at that time. Rests in bed. Sling and swath intact left arm. Pedal pulses strong. Rates left arm and left knee pain 9/10 and george along with HS meds reviewed and given. Alert and oriented x 4. Pleasant.
--- NOTE | 2024-08-06 02:15 | NUR ---
Patient reports he's been sleeping well. Roxycodone given for left arm and left knee pain.
[2024-08-06 07:35] VITALS: BP 159/83
--- NOTE | 2024-08-06 11:00 | NUR ---
PT SITTING UP IN BED.. PHYSICAL THERAPY AT BEDSIDE. PT REPORTS THAT THERAPY CAUSES PAIN. WITH THE MOVEMENT. PAIN MEDICATION ADMINISTERED. PT HAS SLING PLACED TO LUE. CALL LIGHT WITHIN REACH. A/O X4, NO DISTRESS NOTED. ANTI SLIP SOCKS IN PLACE.
--- NOTE | 2024-08-06 11:11 | NUR ---
MEPILEX REPLACED (DATED 08/01/24 KB) TO MID BACK, NO OPEN REGIONS, SOME DISCOLERATION STILL NOTED. PT REPORTS HAD A TEAR FROM PREVIOUS CT BED USAGE.
--- NOTE | 2024-08-06 13:19 | NUR ---
REPORT TO ILANA CERVANTES.
[2024-08-06 19:39] VITALS: BP 136/70
--- NOTE | 2024-08-06 20:30 | NUR ---
Report received from Sheila PRECIADO. Patient rests supine in bed with Sling in place to LUE. A/O x 4. Rating pain to LUE and LLE 8/10, "constant pain" "sharp with movement". HS medications and PRN oxycodone taken at this time. Assessment completed. Mepilex CDI to spine. Denies wants or needs at this time. Bed alarm on. Call light in reach.
--- NOTE | 2024-08-07 04:08 | NUR ---
Calls for assist to BR and analgesic, rates pain 03/06. Oxycodone 15 MG taken PO. Up to BR with SBA and quad cane, voids and assisted back to bed. Able to get self in and out of bed.
--- NOTE | 2024-08-07 06:53 | NUR ---
Report to Denise PRECIADO.
[2024-08-07 07:00] VITALS: BP 149/82
--- NOTE | 2024-08-07 07:23 | NUR ---
PT. AWAKE IN BED AT THIS TIME. REPORTS THAT HE WANTS A PAIN PILL SOON HE CAN HAVE ONE. NO OTHER CONCERNS THIS AM.
--- NOTE | 2024-08-07 08:00 | NUR ---
PT USED RESTROOM AND SAT UP FOR BREAKFAST.
--- NOTE | 2024-08-07 09:00 | NUR ---
PT IS WITH THERAPY
[2024-08-07 11:39] VITALS: BP 135/75
--- NOTE | 2024-08-07 15:50 | NUR ---
Valerie sends [facility] and reports pt last covered day will be 08/10. Discussed with patient and Rima. They are in agreeance. Pt signs [facility] and placed on chart. has gotten the quad cane and bedside commode for home. Home health choice list given and they will discuss and decide. Rima voices she would like training and assistance getting him down the stairs into their apartment. Will pass along to PT She does think she could have a friend there to help them on Tuesday. Will plan for 08/11 DC
--- NOTE | 2024-08-07 17:57 | NUR ---
SEE PROVIDER NOTE FROM Nehemias LYMAN APRN. MEASUREMENTS AND PICTURES TAKEN TODAY
--- NOTE | 2024-08-07 18:11 | NUR ---
PT. PLANNING TO DISCHARGE ON TUESDAY. NO CHANGES IN CONDITION THROUGHOUT THE DAY. WORKED WELL WITH THERAPY. CONTINUES TO FREQUENTLY ASK FOR PAIN PILLS.
[2024-08-07 19:00] VITALS: BP 152/80
--- NOTE | 2024-08-07 19:02 | NUR ---
Report received from Denise PRECIADO. Patient rests in bed with eyes closed. Respirations even and non-labored. Sling in place to LUE. No signs of pain/distress. Bed alarm set. Call light in reach.
--- NOTE | 2024-08-07 21:30 | NUR ---
Calls for assist to BR and pain pills. Ambulated with SBA and quad cane to void. Back to bed. HS medications and PRN oxycodone taken po without difficulty. Assessment completed. Sling in place. Refused pillow under L arm. Denies further wants or needs. Ensure provided per order.
--- NOTE | 2024-08-08 05:53 | NUR ---
Rested well through the night. Up to BR and requested analgesic at 0330. Bed alarm on. Call light in reach.
--- NOTE | 2024-08-08 06:54 | NUR ---
Report to Lizbeth Tijerina RN.
--- NOTE | 2024-08-08 07:00 | NUR ---
RESUMED CARE FROM KALPESH LEGER.
[2024-08-08 07:42] LABS: BASO # 0.02 K/mm3 (0.02-0.10); EOS # 0.43 K/mm3 (0.04-0.40); EOS % 4.6 % (0.0-4.0); HEMATOCRIT 30.4 % (42.0-52.0); HEMOGLOBIN 9.3 g/dL (13.5-18.0); LYMPH# 1.88 K/mm3 (1.50-4.00); MEAN CELL VOLUME 84 fl (78-100); MEAN CORPUSCULAR HEMOGLOBIN 26 pg (27-31); MEAN CORPUSCULAR HGB CONC 31 g/dL (33-37); MEAN PLATELET VOLUME 8.8 fl (7.4-10.4); MONO # 0.85 K/mm3 (0.20-0.80); NEU # 6.09 K/mm3 (1.40-6.50); PLATELET COUNT 265 K/mm3 (130-400); RED BLOOD COUNT 3.64 M/mm3 (4.20-5.60); RED CELL DISTRIBUTION WIDTH 16.1 % (11.5-14.5); WHITE BLOOD COUNT 9.4 K/mm3 (4.8-10.8)
[2024-08-08 07:46] VITALS: BP 169/89
[2024-08-08 07:49] LABS: ALBUMIN 3.3 g/dL (3.4-4.8)
[2024-08-08 07:50] LABS: CALCIUM 9.3 mg/dL (8.3-10.5)
[2024-08-08 07:51] LABS: TOTAL PROTEIN 6.9 g/dL (6.2-8.1)
[2024-08-08 07:53] LABS: TOTAL BILIRUBIN 0.5 mg/dL (0.2-1.2)
--- NOTE | 2024-08-08 07:53 | NUR ---
PATIENT MEDICATED REQUESTED FOR C\O PAIN LEFT UPPER EXTREMITY AND LEFT LOWER EXTREMITY. PATIENT STATES PAIN IS AT A 9 WITH THE LEFT ELBOW HURTING HIM THE MOST. VISITED WITH PATIENT ABOUT NEED TO CONTINUE TO WORK TOWARDS DISMISSAL (3) DAYS AND NEED TO BE UP IN CHAIR FOR MEALS. PATIENT ASSIST WITH QUAD CANE TO CHAIR TO AWAIT BREADFAST. PATIENT IS STEADY ON FEET WITH ASSIST NEEDED FOR AMBULATION.
--- NOTE | 2024-08-08 14:17 | NUR ---
PATIENT STATED THAT THAT HE RETURNED FROM THERAPY AND IS IN MORE PAIN BUT HE IS AWARE THAT UNABLE TO GET PAIN MED. PATIENT REPOSITIONED IN BED AND HOB ADJUSTED FOR COMFORT. FELICITA VOICES UNDERSTANDING THAT UNABLE TO MEDICATE FOR PAIN AT THIS TIME.
[2024-08-08 19:00] VITALS: BP 171/87
--- NOTE | 2024-08-08 19:02 | NUR ---
REPORT TO ILANA PABON.
[2024-08-09 07:00] VITALS: BP 138/80
--- NOTE | 2024-08-09 09:42 | NUR ---
PATIENT UP IN CHAIR FOR MEAL. MEPILEX INTACT TO LOWER BACK/COCCYX AREA PATIENT IS SLENDER AND SEVERAL BONY PROMINENCES. SLING ON LEFT UPPER EXTREMITY AND PATIENT ABLE TO ADJUST SLING FOR COMFORT.
--- NOTE | 2024-08-09 09:53 | NUR ---
PATIENT WAS UP IN CHAIR FOR AM MEAL AND IN A GOOD MOOD. PATIENT STATED THAT HE IS LOOKING FORWARD TO GOING HOME IN (2) DAYS AND JUST WISHED THAT WHEN IT WAS "DECIDED I COULD GO HOME THAT I DIDN'T HAVE TO WAIT". PATIENT STATED THAT PAIN IN LEFT LOWER AND LEFT UPPER EXTREMITY IS CONSTANT AND THE PAIN MEDICATION ALLOWS HIM TO "TOLERATE IT". PATIENT REQUESTS THAT HE BE MEDICATED PRIOR TO PT/OT THIS AM. TEACHING DONE THAT THAT WILL BE POSSIBLE. PATIENT CONTENT AND WITHOUT FURTHER NEEDS VOICED.
--- NOTE | 2024-08-09 10:45 | NUR ---
PATIENT UP IN DUNN WALKING WITH PT AND QUAD CANE.
--- NOTE | 2024-08-09 12:29 | NUR ---
PATIENT SITTING UP IN CHAIR FOR MEAL. TEARFUL/CRYING...."I'M IN SO MUCH PAIN" AFTER THAT THERAPY". STATES PAIN IN LEFT UPPER LEG. OFFERED ICE THERAPY, RE-POSITIONING, OR PILLOW PLACEMENT. DECLINES THESE MEASURES. PATIENT ACUTLY AWARE PAIN MEDICATION IS AVAILABLE AFTER 1400 TODAY.
--- NOTE | 2024-08-09 17:24 | NUR ---
PATIENT CALLED NURSE MUTUEL CLERK INTO ROOM....TEARFUL AND STATING "AM I GOING TO GO THROUGH WITHDRAWL?". PATIENT THEN ASKS ABOUT WHEN HIS NEXT NARCOTIC FOR PAIN IN DUE. TEACHING DONE PAIN MEDICATION CAN BE ADMINISTERED IN APPROX 45 MINUTES BUT THAT HE WILL STILL NEED TO CALL TO BE MEDICATED. WORDS OF ENCOURAGEMENT OFFERED TO PATIENT AND PATIENT VOICED LESS ANXIOUS AT THIS TIME.
--- NOTE | 2024-08-09 18:40 | NUR ---
REPORT TO AGUS Carrillo LPN
[2024-08-09 19:00] VITALS: BP 167/84
--- NOTE | 2024-08-09 20:04 | NUR ---
Reports received from Cristopher PRECIADO. Patient rests supine in bed watching TV. A/O x4. Rates pain to LUE 01/03. Sling in place. Remains NWB to LUE. CMS intact. HS medications taken. Requests and given Atarax for anxiety. State he is anxious over all the pain pills he takes and has taken for a long time. Voices wanting to try and get off of them. States he sees a pain Dr. but "she doesn't help anything.". Denies further wants or needs at this time. Pending discharge home on Tuesday. Bed alarm on. Call light in reach.
--- NOTE | 2024-08-09 22:52 | NUR ---
Calls for assist to BR then a pain pill. Rates pain 8/10. Oxycodone taken at this time. Denies further wants or needs.
--- NOTE | 2024-08-10 02:44 | NUR ---
Requests and given Oxycodone for pain 02/03.
--- NOTE | 2024-08-10 06:53 | NUR ---
Report to Denise PRECIADO.
[2024-08-10 07:33] VITALS: BP 175/91
--- NOTE | 2024-08-10 07:48 | NUR ---
PT. INCONTINENT OF URINE THIS AM. STATES HE JUST COULDN'T HOLD IT. ASSISTED WITH CHANGING PANTS. REQUESTS PO PAIN MEDS. OXY GIVEN. STATES HE IS DREADING THERAPY TODAY AND IS READY TO GO HOME TOMORROW. NO OTHER CONCERNS.
--- NOTE | 2024-08-10 09:49 | NUR ---
Pt plans to DC home tomorrow. [facility] accepted patient and plans to see patient Tuesday. Pt updated. Pt also given flyer for [employer] as regional operations manager has recommended and discussed with pt and
--- NOTE | 2024-08-10 18:29 | NUR ---
PT. REPORTS THAT HE IS READY TO GO HOME TOMORROW. WAS NAUSEATED BEFORE LUNCH AND GIVEN ZOFRAN. ABLE TO EAT LUNCH WELL AND DENIES ANY NAUSEA THE REST OF THE DAY. PLAN TO BE DISCHARGED AT 1300 TOMORROW AND TAKE HOME THE MATTRESS TOPPER AND GAIT BELT. DENIES ANY OTHER CONCERNS.
[2024-08-10] MEDS ORDERED: ELIQUIS2.5 MG PO (18:54)
[2024-08-10 19:00] VITALS: BP 157/81
--- NOTE | 2024-08-10 19:28 | NUR ---
Report received from Denise PRECIADO. Patient requests medication for anxiety. States having some nausea also. Hydralazine taken at this time. Rests supine in bed watching TV. A/O x4. Rates pain 01/03. "it's not too bad right now". Sling in place to LUE. CMS intact. Denies further wants or needs at this time. Bed alarm on. Call light in reach.
--- NOTE | 2024-08-10 21:15 | NUR ---
HS medications taken. PRN Oxycodone given per requests pain 02/03.
--- NOTE | 2024-08-11 05:30 | NUR ---
Up to BR with SBA. Requests analgesic for pain to LUE 02/03. Advised can have in 30 minutes. Denies further wants or needs.
--- NOTE | 2024-08-11 06:44 | NUR ---
Report to Denise PRECIADO.
[2024-08-11 07:06] VITALS: BP 167/83
--- NOTE | 2024-08-11 07:20 | NUR ---
PT. DENIES ANY NEEDS OR CONCERNS THIS AM. REPORTS THAT HE FEELS READY TO GO HOME TODAY.
--- NOTE | 2024-08-11 14:15 | NUR ---
PT. DISCHARGED HOME AT THIS TIME PER W/C WITH FAMILY. REVIEWED DISCHARGE INSTRUCTIONS WITH PT. AND FAMILY. BOTH DENY ANY QUESTIONS. NOLBERTO CALLED IN TO [facility] IN [place] [facility] IS CLOSED AT THIS TIME.
--- NOTE | 2024-08-13 14:23 | NUR ---
PATIENT'S FAMILY MEMBER ARRIVED TO [facility] TO [employer] PATEINT'S BELONGINGS THAT WERE LEFT WHEN ON DISCHARGE. VARIFIED WITH FAMILY MEMBER THAT WALLET WAS PRESENT AND GIVEN TO FAMILY MEMBER WITH ITEMS OF CLOTHES.
== END 2024-08-11 14:15 | disposition home or self-care (01) | DRG 562 ==
LOC: MED/SURG 13:27
PROVIDERS: ADMIT Family Medicine
DX: S42.302A Unspecified fracture of shaft of humerus, left arm, initial encounter for closed fracture (principal); S72.92XA Unspecified fracture of left femur, initial encounter for closed fracture; R64 Cachexia; F11.20 Opioid dependence, uncomplicated; G89.4 Chronic pain syndrome; F32.A Depression, unspecified; F41.9 Anxiety disorder, unspecified; F17.210 Nicotine dependence, cigarettes, uncomplicated; K59.09 Other constipation; E03.9 Hypothyroidism, unspecified; R11.2 Nausea with vomiting, unspecified
CPT/HCPCS: A9270; Q0177

== ENCOUNTER 2024-08-21 14:21 | Emergency (ER) | payer MEDICARE, MEDICAID ==
[~2024-08-21] VITALS: Ht 193 cm; Wt 50.7 kg
[~2024-08-21 14:21] MED LIST changes: +DULOXETINE60 MG PO; +DURAGESIC50 MCG/PAT TD; +ELIQUIS2.5 MG PO; +LEVOTHYROXINE50 MCG PO; +LINZESS145 MCG PO; +ONDANSETRON ODT8 MG PO
[2024-08-21] MEDS ORDERED: NS 1,000 ML IV SCH ×2 (15:00→17:15)
[2024-08-21 15:01] LABS: SODIUM 137 mmol/L (136-145)
[2024-08-21 15:02] LABS: ALBUMIN 3.8 g/dL (3.4-4.8); CALCIUM 9.6 mg/dL (8.3-10.5)
[2024-08-21 15:04] LABS: TOTAL PROTEIN 7.9 g/dL (6.2-8.1)
[2024-08-21 15:05] LABS: CARBON DIOXIDE 25 mmol/L (23-31); GLUCOSE 132 mg/dL (75-110)
[2024-08-21 15:06] LABS: TOTAL BILIRUBIN 0.4 mg/dL (0.2-1.2)
[2024-08-21 15:09] LABS: AST-SGOT 15 U/L (5-34)
[2024-08-21 15:12] LABS: ALT/SGPT 10 U/L (0-55)
[2024-08-21 15:20] LABS: TROPONIN-I < 0.030 ng/mL (0.00-0.033)
[2024-08-21 15:43] LABS: BASO # 0.02 K/mm3 (0.02-0.10); EOS # 0.15 K/mm3 (0.04-0.40); EOS % 1.4 % (0.0-4.0); HEMATOCRIT 36.4 % (42.0-52.0); HEMOGLOBIN 11.3 g/dL (13.5-18.0); LYMPH# 1.79 K/mm3 (1.50-4.00); MEAN CELL VOLUME 82 fl (78-100); MEAN CORPUSCULAR HEMOGLOBIN 25 pg (27-31); MEAN CORPUSCULAR HGB CONC 31 g/dL (33-37); MEAN PLATELET VOLUME 9.4 fl (7.4-10.4); MONO # 1.21 K/mm3 (0.20-0.80); NEU # 7.28 K/mm3 (1.40-6.50); PLATELET COUNT 264 K/mm3 (130-400); RED BLOOD COUNT 4.45 M/mm3 (4.20-5.60); RED CELL DISTRIBUTION WIDTH 15.7 % (11.5-14.5); WHITE BLOOD COUNT 10.5 K/mm3 (4.8-10.8)
[2024-08-21 15:47] LABS: PROTHROMBIN TIME 10.8 SECONDS (9.0-12.0)
[2024-08-21 15:49] LABS: D-DIMER 2.08 mg/L FEU (0.15-0.50)
[2024-08-21] MEDS ORDERED: oxyCODONE 5 MG TAB PO ONE (16:45)
[2024-08-21] MEDS ORDERED: NS 100 ML IV ONE (16:58)
[2024-08-21] MEDS ORDERED: Iohexol 350 - 100 ML VIAL IV ONE (16:59)
[2024-08-21 18:30] VITALS: BP 125/84
== END 2024-08-21 18:30 | disposition other institution (70) ==
LOC: ED 14:21
PROVIDERS: Physician Assistant
DX: K59.00 Constipation, unspecified (principal); N17.9 Acute kidney failure, unspecified; R53.1 Weakness; E87.6 Hypokalemia; R74.02 Elevation of levels of lactic acid dehydrogenase [LDH]
CPT/HCPCS: J7030; Q9967

== ENCOUNTER 2024-08-24 07:32 | Inpatient (IN) | payer MEDICARE, MEDICAID ==
[~2024-08-24] VITALS: Ht 193 cm; Wt 59.9 kg
[2024-08-24] MEDS ORDERED: oxyCODONE 5 MG TAB PO PRN (07:45)
[2024-08-24] MEDS ORDERED: Acetaminophen 500 MG TAB PO PRN (07:45)
[2024-08-24] MEDS ORDERED: Polyethylene Glycol 3350 Powder 17 GM PACKET PO PRN (08:00)
[2024-08-24] MEDS ORDERED: Magnesium Citrate Oral Soln 300 ML BOTTLE PO PRN (08:00)
--- NOTE | 2024-08-24 14:30 | NUR ---
Pt called and states he knows he had a stool but didn't know he had a stool. Assisted to BR using cane with gait belt w/ steady gait. Incontinent of large brown soft stool in depends. Pt very embarrassed about incontinence. Pt voids on toilet and assists w/ his pericare. New depends in place and pt returns to bed per his choice. Bed alarms on.
--- NOTE | 2024-08-24 15:30 | NUR ---
COKE AND ICE GIVEN PER REQUEST. DR ORDER RECEIVED TO DC IV. TELE TAKEN OFF NO SWB ORDER FOR IT.
[2024-08-24 19:00] VITALS: BP 141/78
--- NOTE | 2024-08-24 19:30 | NUR ---
Report received from Bethany RN. Patient resting supine in bed watching TV. A/O x4. Sling in place to LUE. Rating pain to LUE 7/10 and requesting pain medication when it is due. State has been having BM's and passing gas. Assessment completed. Encouraged per order to drink 3 of the 1000 ML mugs of water per day, states "yes, the told me himself. Denies wants or needs. Bed alarm on. Call light in reach.
--- NOTE | 2024-08-24 20:35 | NUR ---
HS medications taken, Refused Miralax but encourgaged to take. PO water encouraged. States "I will see you in an hour, referring to his pain medication.
[2024-08-24] MEDS ORDERED: DULoxetine 30 MG CAP PO SCH (21:00)
[2024-08-24] MEDS ORDERED: Gabapentin 300 MG CAP PO SCH (21:00)
[2024-08-24] MEDS ORDERED: Sennosides/Docusate 8.6-50 MG TAB PO SCH (21:00)
[2024-08-24] MEDS ORDERED: Polyethylene Glycol 3350 Powder 17 GM PACKET PO SCH (21:00)
[2024-08-24] MEDS ORDERED: Apixaban 2.5 MG TABLET PO SCH (21:00)
--- NOTE | 2024-08-25 00:41 | NUR ---
Calls for assist to BR. Up with SBA and cane. Refuses SCD's, states "I forgot I had then on and was going to jump out of bed to go to the BR. Bed alarm on, call light in reach.
--- NOTE | 2024-08-25 07:02 | NUR ---
Report to Celestina PRECIADO.
[2024-08-25 07:14] LABS: BASO # 0.02 K/mm3 (0.02-0.10); EOS # 0.33 K/mm3 (0.04-0.40); EOS % 6.3 % (0.0-4.0); HEMATOCRIT 27.5 % (42.0-52.0); HEMOGLOBIN 8.7 g/dL (13.5-18.0); LYMPH# 1.58 K/mm3 (1.50-4.00); MEAN CELL VOLUME 81 fl (78-100); MEAN CORPUSCULAR HEMOGLOBIN 26 pg (27-31); MEAN CORPUSCULAR HGB CONC 32 g/dL (33-37); MEAN PLATELET VOLUME 10.1 fl (7.4-10.4); MONO # 0.63 K/mm3 (0.20-0.80); NEU # 2.67 K/mm3 (1.40-6.50); PLATELET COUNT 144 K/mm3 (130-400); RED BLOOD COUNT 3.38 M/mm3 (4.20-5.60); RED CELL DISTRIBUTION WIDTH 15.3 % (11.5-14.5); WHITE BLOOD COUNT 5.2 K/mm3 (4.8-10.8)
[2024-08-25 07:24] LABS: ALBUMIN 3.1 g/dL (3.4-4.8)
[2024-08-25 07:25] LABS: CALCIUM 9.1 mg/dL (8.3-10.5)
[2024-08-25 07:26] LABS: TOTAL PROTEIN 6.2 g/dL (6.2-8.1)
[2024-08-25 07:28] LABS: TOTAL BILIRUBIN 0.3 mg/dL (0.2-1.2)
[2024-08-25 07:58] VITALS: BP 159/80
[2024-08-25] MEDS ORDERED: busPIRone 5 MG TAB PO SCH (09:00)
[2024-08-25] MEDS ORDERED: hydrOXYzine HCl 25 MG TAB PO SCH (09:00)
--- NOTE | 2024-08-25 09:48 | NUR ---
A&Ox4, RA, reports pain 6/10 on numeric pain scale. Requested PRN. Will be given, as ordered. Reports he slept well last night. SBA with gaitbelt and walker from chair to restroom. Needs assistance with standing from chair d/t pain in arm. SBA with gaitbelt and walker from bathroom to chair. Reports last BM was 08/24/24. Chair in locked position. Call light within reach.
[2024-08-25 19:00] VITALS: BP 145/80
--- NOTE | 2024-08-25 19:00 | NUR ---
Report received from Celestina PRECIADO. Patient rests supine in bed with eyes closed. Respirations even and non-labored, no signs of pain or distress.
--- NOTE | 2024-08-25 20:10 | NUR ---
Awake, watching TV. A/O x4. Rates pain 7/10, which he reports is a tolerable level for him. Assessment completed. HS medications taken whole without difficulty. Takes Miralax tonight with 6 oz of cranberry juice. PO water encouraged. Bed alarm on. Call light in reach.
--- NOTE | 2024-08-26 04:40 | NUR ---
Awake and up to BR with SBA. Requests analgesic for pain 03/06. PRN oxycodone taken at this time. Scheduled AM medication given also. Denies further wants or needs. Bed alarm on. Call light in reach.
--- NOTE | 2024-08-26 07:06 | NUR ---
Report to Jo Ann PRECIADO
[2024-08-26 08:10] VITALS: BP 140/78
[2024-08-26] MEDS ORDERED: [UNRECOGNIZED DRUG - REMARK] TD SCH (10:00)
[2024-08-26] MEDS ORDERED: fentaNYL 50 MCG 72 HR PATCH TD SCH (10:00)
--- NOTE | 2024-08-26 11:41 | NUR ---
750a Patient alert and oriented. Pain at an 8/10. Pain medication not due for another 35 minutes so encouraged repositioning and moved to chair. Patient had an incontinent bowel movement (brown, large, and firm). Patient cleaned and new brief placed on. Heart regular rate and rhythm. Lungs clear to auscultation. Bowel sounds present. Patient swallowed medications whole with water. Ambulation stead with quad cane. 1100 Fentanyl patch 50mcg changed. Old patch removed and new patch placed on right side.
--- NOTE | 2024-08-26 18:45 | NUR ---
Patient had a few naps throughout the afternoon. visited as well. Patient requested pain medications one hour after given for two of the doses today. Patient at a 7-9 throughout the day. States 7 is tolerable. He was up in the chair for the morning but then in the bed for the afternoon d/t pain.
--- NOTE | 2024-08-26 18:48 | NUR ---
Report given to KALPESH Cormier.
[2024-08-26 19:00] VITALS: BP 148/70
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
--- NOTE | 2024-08-26 23:00 | NUR ---
Up to BR with assist from RETURN AGENT. Had a large hard formed BM, incontient of B&B. RETURN AGENT encouraging patient to provide own cares, ie take off own brief and apply own brief. Patient upset and states how am I suppose to do it with this broken arm, "it hurts so bad". PRN oxycodone given at this time.
--- NOTE | 2024-08-27 05:17 | NUR ---
Calls for assist to BR. Incontinent of large amount of urine. Clothing changed. [place]. Rates pain 03/06 to LUE. Oxycodone taken at this time.
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
[2024-08-27 07:00] VITALS: BP 132/69
--- NOTE | 2024-08-27 07:14 | NUR ---
Report to Araceli Rehman RN
[2024-08-27 19:48] VITALS: BP 159/82
[2024-08-28 07:48] VITALS: BP 137/72
[2024-08-28 19:00] VITALS: BP 143/73
--- NOTE | 2024-08-28 22:32 | NUR ---
PATIENT A&O X 4 RESTING IN BED ON ASSESS, PLAYING ON PHONE. REPORTS RELIEF FROM OXY, PAIN NOW 12/04. BREATHING UNLABORED ON RA. REFUSED MIRALAX STATING THAT HE HAD BM TODAY. SLING PRESENT TO LEFT ARM. USES CANE TO AMBULATE. USES CALL LIGHT FOR NEEDS. BED ALARM ON.
--- NOTE | 2024-08-29 01:06 | NUR ---
PATIENT AWAKES AND REQUESTING PAIN MEDS FOR PAIN RATED 8/10. AWAKE AND ALERT. DENIES FURTHER NEEDS
[2024-08-29 07:15] VITALS: BP 148/80
[2024-08-29 07:41] LABS: BASO # 0.02 K/mm3 (0.02-0.10); EOS # 0.21 K/mm3 (0.04-0.40); EOS % 5.1 % (0.0-4.0); HEMATOCRIT 29.8 % (42.0-52.0); HEMOGLOBIN 9.2 g/dL (13.5-18.0); LYMPH# 1.32 K/mm3 (1.50-4.00); MEAN CELL VOLUME 83 fl (78-100); MEAN CORPUSCULAR HEMOGLOBIN 26 pg (27-31); MEAN CORPUSCULAR HGB CONC 31 g/dL (33-37); MEAN PLATELET VOLUME 9.1 fl (7.4-10.4); MONO # 0.72 K/mm3 (0.20-0.80); NEU # 1.82 K/mm3 (1.40-6.50); PLATELET COUNT 144 K/mm3 (130-400); RED BLOOD COUNT 3.59 M/mm3 (4.20-5.60); RED CELL DISTRIBUTION WIDTH 15.7 % (11.5-14.5); WHITE BLOOD COUNT 4.1 K/mm3 (4.8-10.8)
[2024-08-29 07:52] LABS: ALBUMIN 3.3 g/dL (3.4-4.8)
[2024-08-29 07:54] LABS: CALCIUM 8.8 mg/dL (8.3-10.5)
[2024-08-29 07:55] LABS: TOTAL PROTEIN 6.6 g/dL (6.2-8.1)
[2024-08-29 07:57] LABS: TOTAL BILIRUBIN 0.2 mg/dL (0.2-1.2)
--- NOTE | 2024-08-29 14:34 | NUR ---
Case Management notified by Valerie of last covered day being 08/31. [facility] provided to the patient along with education on his right to appeal. Signed original placed in the patients chart and copy provided to patient.
--- NOTE | 2024-08-29 16:19 | NUR ---
PATIENT REQUESTING PAIN MEDICATION....PATIENT TEACHING DONE THAT IT IS NOT DUE FOR APPROX 1HR....PATIENT VOICED UNDERSTANDING AND STATED "OH I GOT THE SCHEDULE OFF".
--- NOTE | 2024-08-29 18:47 | NUR ---
REPORT TO ARSEN Carrillo LPN
[2024-08-29 19:23] VITALS: BP 119/73
--- NOTE | 2024-08-29 19:25 | NUR ---
Report received from Cristopher PRECIADO. Patient rests supine in bed with eyes closed, respirations even and non-labored, no signs of pain/distress.
--- NOTE | 2024-08-29 21:35 | NUR ---
Awake, requests analgesic for pain reported all over and achy 03/06. Watching TV in supine position. Scheduled HS medications and PRN Oxycodone taken at this time. Refused Miralax. Assessment completed. Denies further wants or needs. Bed alarm on. Call light in reach.
--- NOTE | 2024-08-30 03:14 | NUR ---
Resting quietly with eyes closed. Respirations even and non-labored. No signs of pain/distress. Bed alarm on. Call light in reach.
--- NOTE | 2024-08-30 06:10 | NUR ---
AM medications taken. Requests and given PO oxycodone for reported pain 02/03. Would like coffee this AM. Advised will have to sit up in recliner to drink.
--- NOTE | 2024-08-30 06:50 | NUR ---
Report to Cristopher PRECIADO
[2024-08-30 06:59] VITALS: BP 147/75
--- NOTE | 2024-08-30 18:32 | NUR ---
REPORT GIVEN TO ARSEN POSEY
[2024-08-30 18:55] VITALS: BP 153/76
--- NOTE | 2024-08-30 20:01 | NUR ---
Report received from Cristopher PRECIADO. Patient resting in bed. A/O x4. HS medications and PRN roxycodone given by Jelly PRECIADO. Rates pain 8/10. Sling in place to LUE. Up with SBA and cane PRN. Assessment completed. Denies wants or needs at this time.
--- NOTE | 2024-08-30 21:44 | NUR ---
Refuses to wear SCD's.
--- NOTE | 2024-08-31 00:08 | NUR ---
Pain reported 02/03. PRN roxicodone 15 Mg taken now PO. Denies further wants or needs at this time. Bed alarm on. Call light in reach.
--- NOTE | 2024-08-31 04:38 | NUR ---
Awake and up to BR. Requests and given Oxycodone for reported pain L arm 03/06.
--- NOTE | 2024-08-31 06:58 | NUR ---
Report to Bethany PRECIADO
[2024-08-31 07:10] VITALS: BP 154/82
[2024-08-31] MEDS ORDERED: POTASSIUM CHLO20 ME3 PO (17:56)
[2024-08-31 19:00] VITALS: BP 166/86
--- NOTE | 2024-08-31 19:00 | NUR ---
Rests in bed with eyes closed. No signs of pain distress. Bed alarm on. Call light in reach.
--- NOTE | 2024-09-01 01:45 | NUR ---
Awake, up to BR with assist. Requests analgesic for pain 03/06, "all over". Roxycodone 15 MG taken at this time. Denies further wants or needs.
--- NOTE | 2024-09-01 05:51 | NUR ---
Rested off and on through the night. Medication for pain provided Q 4 hours per request. AM medications taken. Discharging home later today. Bed alarm on. Call light in reach.
[2024-09-01 07:00] VITALS: BP 165/83
--- NOTE | 2024-09-01 07:05 | NUR ---
Report to Cristopher/Tiny PRECIADO's.
== END 2024-09-01 11:42 | disposition home or self-care (01) | DRG 684 ==
LOC: MED/SURG 07:32
PROVIDERS: ADMIT Family Medicine
DX: N17.9 Acute kidney failure, unspecified (principal); K59.00 Constipation, unspecified; E03.9 Hypothyroidism, unspecified; R53.81 Other malaise; R53.1 Weakness
CPT/HCPCS: Q0177